=== PATIENT | female | born 1945 | race Caucasian/White ===

== ENCOUNTER 2018-01-07 14:48 | Inpatient (IN) | payer OTHER ==
[~2018-01-07] VITALS: Ht 157.5 cm; Wt 75.7 kg
[~2018-01-07 14:48] MED LIST: ANTIVERT12.5 MG; ANTIVERT25 MG PO; ASTEPRO205.5 MCG/ INH; BACTRIM DS TAB1 EACH PO; ENALAPRIL MALE2.5 MG; FLEXERIL10 MG PO; FLUVIRIN INJ; LASIX20 MG PO; MELOXICAM15 MG PO; MELOXICAM7.5 MG; METOPROLOL SUCC50 MG PO; NASONEX17 GM; PROAIR HFA INH8.5 GM; SERTRALINE HCL50 MG PO; SINGULAIR10 MG PO; SINGULAR; TRAZODONE HCL150 MG PO; VASOTEC5 M1 PO; VYTORIN 10-101 EACH; VYTORIN 10-401 EACH PO
[2018-01-07 17:11] LABS: BASOPHILS % 0.4 % (0.0-1.0); EOSINOPHILS # (AUTO) 0.2 (0.0-0.4); HEMATOCRIT 28.8 % (34.2-44.1); HEMOGLOBIN 8.6 g/dL (12.0-16.0); LYMPHOCYTES # (AUTO) 1.1 (1.0-3.2); LYMPHOCYTES % 10.4 % (18.0-39.1); MEAN CORPUSCULAR HEMOGLOBIN 24.8 pg (28-32); MEAN CORPUSCULAR HGB CONC 29.9 g/dL (31-35); MONOCYTES # (AUTO) 0.3 (0.2-0.8); MONOCYTES % 2.5 % (4.4-11.3); NEUTROPHILS # (AUTO) 8.9 (2.1-6.9); NEUTROPHILS % 83.8 % (38.7-80.0); PLATELET COUNT 355 x10e3/uL (140-360); RED BLOOD COUNT 3.47 x10e6/uL (3.6-5.1); RED CELL DISTRIBUTION WIDTH 17.2 % (11.7-14.4)
[2018-01-07 17:12] LABS: ALANINE AMINOTRANSFERASE 20 IU/L (0-55); ALBUMIN 2.8 g/dL (3.5-5.0); ALBUMIN/GLOBULIN RATIO 0.7 (0.8-2.0); ALKALINE PHOSPHATASE 36 IU/L (40-150); ANION GAP 13.3 mmol/L (8-16); BLOOD UREA NITROGEN 40 mg/dL (7-26); BUN/CREATININE RATIO 23 (6-25); CALCIUM 9.4 mg/dL (8.4-10.2); CARBON DIOXIDE 27 mmol/L (22-29); CHLORIDE 105 mmol/L (98-107); CREATINE KINASE 42 IU/L (29-168); CREATININE, SERUM 1.76 mg/dL (0.57-1.11); EST GLOMERULAR FILTRATION RATE 29 ML/MIN (60-); GLUCOSE 144 mg/dL (74-118); MAGNESIUM 2.1 MG/DL (1.3-2.1); PARTIAL THROMBOPLASTIN TIME 47.1 seconds (23.8-35.5); SODIUM 140 mmol/L (136-145)
[2018-01-07 17:13] LABS: POTASSIUM 5.3 mmol/L (3.5-5.1)
[2018-01-07 17:18] LABS: INR 5.93; PROTHROMBIN TIME 49.8 seconds (11.9-14.5)
[2018-01-07 17:38] LABS: CLARITY,URINE CLEAR (CLEAR); COLOR,URINE GREEN (YELLOW)
[2018-01-07 17:39] LABS: BILIRUBIN,URINE 2+ (NEGATIVE); KETONES,URINE NEGATIVE (NEGATIVE); LEUKOCYTE ESTERASE ,URINE NEGATIVE (NEGATIVE); NITRITE,URINE NEGATIVE (NEGATIVE); PROTEIN,URINE DIPSTICK NEGATIVE (NEGATIVE); URINE UROBILINOGEN 0.2 mg/dL (0.2 - 1)
[2018-01-07 17:40] LABS: AMPHETAMINES SCREEN,URINE NEGATIVE (NEGATIVE); BENZODIAZEPINES SCREEN,URINE POSITIVE (NEGATIVE); PHENCYCLIDINE SCREEN,URINE NEGATIVE (NEGATIVE)
[2018-01-07 17:50] LABS: BACTERIA,URINE FEW /HPF; EPITHELIAL CELLS,URINE MODERATE /LPF; TRANSITIONAL EPI CELLS,URINE FEW; WBC,URINE (MAN) 0-5 /HPF (0-5)
--- NOTE | 2018-01-07 17:56 | Diagnostic Imaging Report ---
Exam: Head CT without contrast History: Altered mental status Comparison studies: None Technique: Axial images were obtained from the skull base to the vertex. Coronal and sagittal images reconstructed from the axial data. Intravenous contrast: None Findings: Scalp: No abnormalities. Bones: No fractures, blastic or lytic lesions. Brain sulci: Mild prominent. Ventricles: Mild compensatory dilatation. No hydrocephalus. Extra-axial spaces: No masses, no fluid collection. Parenchyma: No abnormal densities. No masses, hemorrhage, acute or chronic vascular insults. Sellar/suprasellar region: No abnormalities. Craniocervical junction: Patent foramen magnum. No Chiari one malformation. Incidental findings: Atherosclerotic calcifications in the carotid siphons. Intraocular lens replacement related previous scattered surgery. IMPRESSION: 1. No acute abnormalities. 2. Mild age-related general is volume loss. Signed by: Dr. Hamzah Lamas M.D. on 01/07/2018 5:52 PM
--- NOTE | 2018-01-07 17:58 | Diagnostic Imaging Report ---
PROCEDURE: A single AP view of the chest. COMPARISON: Patients [facility], DX, THORACIC SPINE AP\T\[place], 10/13/2012, 15:31. INDICATIONS: CHANGE IN MENTAL STATUS FINDINGS: See impression. IMPRESSION: 1. central pulmonary venous congestion and bilateral very hilar interstitial opacities, likely reflect interstitial edema. 2. Atelectatic changes in the right lower lung. No definite consolidation or effusion. 3. Stable cardiac silhouette. 4. No acute bony abnormalities. Jermaine Méndez M.D. Dictated by: Jermaine Méndez M.D. on 01/07/2018 at 18:01 Electronically approved by: Jermaine Méndez M.D. on 01/07/2018 at 18:01
[2018-01-07] MEDS ORDERED: DEXTROSE 50% SYRINGE 50 ML IV PRN ×2 (20:15)
--- OUTSIDE RECORDS SUMMARY | 2018-01-07 20:28 | XMS REPORT ---
Author Author [facility] Address Unknown Phone Unavailable Care Team Providers Care Master Electrician Name Role Phone MARY MCCAIN Unavailable Unavailable Problems This patient has no known problems. Allergies, Adverse Reactions, Alerts This patient has no known allergies or adverse reactions. Medications This patient has no known medications. Results Test Description Test Time Test Comments Text Results Atomic Results Result Comments CT BRAIN WO [place] [address] Patient Name: MARQUES LIU MR #: [id number] : 1945 Age/Sex: 72/F Req #: [id number] Adm Physician: Ordered by: EPIFANIO MARCOS CABLE SWAGER Report #: [id number] Location: ER Room/Bed: Procedure: [id number] CT/CT BRAIN WO Exam Date: 01/07/18 Exam Time: 1738 REPORT STATUS: Signed Exam: Head CT without contrast History: Altered mental status Comparison studies: None Technique: Axial images were obtained from the skull base to the vertex. Coronal and sagittal images reconstructed from the axial data. Intravenous contrast: None Findings: Scalp: No abnormalities. Bones: No fractures, blastic or lytic lesions. Brain sulci: Mild prominent. Ventricles: Mild compensatory dilatation. No hydrocephalus. Extra-axial spaces: No masses, no fluid collection. Parenchyma: No abnormal densities. No masses, hemorrhage , acute or chronic vascular insults. Sellar/suprasellar region: No abnormalities. Craniocervical junction: Patent foramen magnum. No Chiari one malformation. Incidental findings: Atherosclerotic calcifications in the carotid siphons. Intraocular lens replacement related previous scattered surgery. IMPRESSION: 1. No acute abnormalities. 2. Mild age- related general is volume loss. Signed by: Dr. Augusta Lamas M.D. on 2017 5:52 PM Dictated By: AUGUSTA LAMAS MD 51 Transcribed By: DEVAN on 01/07/181751 COPY TO: EPIFANIO MARCOS CABLE SWAGER CHEST SINGLE (PORTABLE) [place] [address] Patient Name: MARQUES LIU MR #: [id number] : 1945 Age/Sex: 72/F Req #: [id number] Adm Physician: Ordered by: EPIFANIO MARCOS CABLE SWAGER Report # : [id number] Location: ER Room/Bed: Procedure: [id number] DX/CHEST SINGLE (PORTABLE) Exam Date: 01/07/18 Exam Time: 1745 REPORT STATUS: Signed PROCEDURE: A single AP view of the chest. COMPARISON: [facility], DX, THORACIC SPINE AP T [place], 10/13/2012, 15:31. INDICATIONS: CHANGE IN MENTAL STATUS FINDINGS: See impression. IMPRESSION: 1. central pulmonary venous congestion and bilateral very hilar interstitial opacities, likely reflect interstitial edema. 2. Atelectatic changes in the right lower lung. No definite consolidation or effusion. 3. Stable cardiac silhouette. 4. No acute bony abnormalities. Marco Méndez M.D. Dictated by : Marco Méndez M.D. on 01/07/2018 at 18:01 Electronically approved by: Marco Méndez M.D. on 01/07/2018 at 18:01 Dictated By : MARCO MÉNDEZ MD 00 Transcribed By: DAVON on 01/07/181800 COPY TO: EPIFANIO MARCOS NP
[2018-01-07] MEDS: INSULIN REGULAR, HUMAN 100 UNIT/1 ML 3ML VIAL SQ SCH (21:00)
[2018-01-07 21:16] VITALS: BP 193/79
[2018-01-07] MEDS: CEFTRIAXONE SOD 1 GM VIAL IV SCH (21:55)
--- NOTE | 2018-01-07 22:48 | Diagnostic Imaging Report ---
EXAM: CT CHEST WO DATE: 01/07/2018 7:57 PM INDICATION: \S\ Pneumonia \[id number] \S\2111 COMPARISON: None TECHNIQUE: Multidetector CT scanning of the chest was performed. Coronal and sagittal multiplanar reformations were obtained. IV Contrast: 0 ml Isovue 370/300 FINDINGS: LUNGS AND PLEURA: Mild dependent bibasilar opacities. Linear subsegmental right basilar scarring or atelectasis. No consolidation. Trace pleural fluid bilaterally. HEART, MEDIASTINUM, VESSELS: Cardiomegaly with coronary and aortic calcifications. Fluid is seen in the superior pericardial recesses. Incidental calcified right thyroid nodule, difficult to measure. UPPER ABDOMEN: Elevated right hemidiaphragm. Too small to characterize punctate right liver hypodensity. Moderate extrahepatic biliary ductal dilation up to 1.5 cm status post cholecystectomy. Nodular thickening of bilateral adrenal. Incidental diverticulosis. MUSCULOSKELETAL: Scattered degenerative changes. IMPRESSION: Mild bibasilar atelectasis and/or scarring. No evidence of pneumonia. Signed by: Dr Bozena Jensen MD on 01/07/2018 10:45 PM
[2018-01-07 23:08] VITALS: BP 160/80
[2018-01-07 23:18] VITALS: BP 160/80
[2018-01-07 23:28] VITALS: BP 160/80
[2018-01-07 23:32] VITALS: BP 160/80
[2018-01-08] VITALS: BP 103/51
[2018-01-08 04:00] VITALS: BP 142/59
[2018-01-08 06:51] LABS: BASOPHILS # (AUTO) 0.1 (0.0-0.1); BASOPHILS % 0.6 % (0.0-1.0); EOSINOPHILS # (AUTO) 0.7 (0.0-0.4); EOSINOPHILS % 6.2 % (0.0-6.0); HEMATOCRIT 27.2 % (34.2-44.1); HEMOGLOBIN 8.2 g/dL (12.0-16.0); LYMPHOCYTES # (AUTO) 1.3 (1.0-3.2); LYMPHOCYTES % 12.6 % (18.0-39.1); MEAN CORPUSCULAR HEMOGLOBIN 24.8 pg (28-32); MEAN CORPUSCULAR HGB CONC 30.1 g/dL (31-35); MEAN CORPUSCULAR VOLUME 82.4 fL (81-99); MONOCYTES # (AUTO) 0.6 (0.2-0.8); MONOCYTES % 5.5 % (4.4-11.3); NEUTROPHILS # (AUTO) 7.9 (2.1-6.9); NEUTROPHILS % 74.4 % (38.7-80.0); PLATELET COUNT 339 x10e3/uL (140-360); RED CELL DISTRIBUTION WIDTH 17.2 % (11.7-14.4)
[2018-01-08 07:20] LABS: ALBUMIN 2.6 g/dL (3.5-5.0); ALBUMIN/GLOBULIN RATIO 0.7 (0.8-2.0); ANION GAP 13.2 mmol/L (8-16); CREATININE, SERUM 1.29 mg/dL (0.57-1.11); POTASSIUM 4.2 mmol/L (3.5-5.1)
[2018-01-08 08:00] VITALS: BP 130/60
[2018-01-08 08:13] LABS: INR 1.23; PROTHROMBIN TIME 14.6 seconds (11.9-14.5)
[2018-01-08] MEDS: CEFTRIAXONE SOD 1 GM VIAL IV SCH (08:50)
[2018-01-08] MEDS: INSULIN REGULAR, HUMAN 100 UNIT/1 ML 3ML VIAL SQ SCH ×3 (08:53→16:30)
[2018-01-08 09:38] VITALS: BP 130/60
[2018-01-08] MEDS ORDERED: TRAZODONE HCL50 MG PO (10:20)
[2018-01-08 12:00] VITALS: BP 137/65
[2018-01-08 16:00] VITALS: BP 129/60
== END 2018-01-08 20:08 | disposition home or self-care (01) | DRG 195 ==
LOC: ER 14:48 → ERHOLD 19:57 → MED/SURG3 20:40
PROVIDERS: ADMIT Internal Medicine; ATTEND Internal Medicine
DX: J18.9 Pneumonia, unspecified organism (principal); I10 Essential (primary) hypertension; E03.9 Hypothyroidism, unspecified; K21.9 Gastro-esophageal reflux disease without esophagitis; F70 Mild intellectual disabilities; Z79.4 Long term (current) use of insulin; E87.5 Hyperkalemia; E11.65 Type 2 diabetes mellitus with hyperglycemia; D64.9 Anemia, unspecified
CPT/HCPCS: 36415; 70450; 71045; 71250; 80053; 80307; 81001; 82140; 82550; 82553; 82948; 83605; 83735; 83880; 84484; 85025; 85610; 85730; 86900; 87040; 93005; 99285; J0696